=== PATIENT | male | born 1945 | race Caucasian/White ===

== ENCOUNTER → 2017-05-23 | Outpatient (CLI) | payer OTHER | END | disposition home or self-care (01) | LOC: C.RDSM 14:00 | PROVIDERS: ATTEND Physical Medicine & Rehabilitation Sports Medicine | DX: M25.561 Pain in right knee (principal); M25.562 Pain in left knee ==

== ENCOUNTER 2017-12-13 06:23 | Inpatient (IN) | payer OTHER ==
[2017-11-25 09:12] VITALS: BMI 35.0
--- NOTE | 2017-11-25 09:47 | PAT Medication Instructions ---
Service Date Nov 25, 2017. Current Home Medication List Ascorbic Acid (Vitamin C), 100 MG PO QAM Esomeprazole Magnesium (Nexium), 40 MG PO QAM Histamine Dihydrochloride (Top (Haitian Dream Arthriti), 1 DOSE TOP PRN Misc Natural Products (Ginkgo Biloba), 1 TAB PO QAM Multivitamin (Multivitamin), 1 TAB PO QAM Ocuvite Preservision (Ocuvite Preservision), 1 TAB PO QAM [Beta Carotene], 1 TAB PO QAM [Echinacea], 1 TAB PO QAM [Gensing], 1 TAB PO QAM [Red Yeast Rice], 1 TAB PO QAM [Vitamin E], 100 UNITS PO QAM Medication Instructions For Your Scheduled Surgery - Hold the following medications 2 weeks prior to surgery: [Vitamin E], 100 UNITS PO QAM [Beta Carotene], 1 TAB PO QAM [Echinacea], 1 TAB PO QAM [Gensing], 1 TAB PO QAM [Red Yeast Rice], 1 TAB PO QAM Histamine Dihydrochloride (Top (Haitian Dream Arthriti), 1 DOSE TOP PRN Misc Natural Products (Ginkgo Biloba), 1 TAB PO QAM - Hold the following medications the morning of surgery: Multivitamin (Multivitamin), 1 TAB PO QAM Ocuvite Preservision (Ocuvite Preservision), 1 TAB PO QAM Ascorbic Acid (Vitamin C), 100 MG PO QAM - Take the following medications the morning of surgery with a sip of water: Esomeprazole Magnesium (Nexium), 40 MG PO QAM If you have any questions please call us at [phone] or [phone] or [phone]
[2017-11-25 10:13] LABS: BASO % 0.5 %; BASO ABS # 0.04 K/uL (0-0.2); EOS % 2.1 %; EOS ABS # 0.18 K/uL (0-0.5); HEMATOCRIT 43.3 % (42-52); HEMOGLOBIN 15.1 g/dL (14.0-18.0); IG# 0.03 K/uL (0.00-0.02); LYMPH % 20.6 %; LYMPH ABS # 1.77 K/uL (1.2-3.4); MEAN CORPUSCULAR HEMOGLOBIN 31.7 pg (25-34); MEAN CORPUSCULAR HGB CONC 34.9 g/dl (32-36); MEAN PLATELET VOLUME 9.8 fL (7.4-10.4); MONO % 10.4 %; MONO ABS # 0.89 K/uL (0.11-0.59); NEUT % 66.1 %; NEUT ABS # 5.67 K/uL (1.4-6.5); PLATELET COUNT 186 K/uL (130-400); RED CELL DISTRIBUTION WIDTH CV 12.4 % (11.5-14.5); RED CELL DISTRIBUTION WIDTH SD 41.6 fL (36.4-46.3); WHITE BLOOD COUNT 8.58 K/uL (4.8-10.8)
[2017-11-25 10:22] LABS: PTT PATIENT 26.1 SECONDS (21.0-31.0)
[2017-11-25 12:22] LABS: CALCIUM 9.4 mg/dl (8.5-10.1); CREATININE 0.97 mg/dl (0.60-1.40); POTASSIUM 4.2 mmol/L (3.5-5.1)
--- NOTE | 2017-12-05 17:54 | HISTORY & PHYSICAL EXAMINATION ---
DATE OF ADMISSION: 12/13/2017 CHIEF COMPLAINT: Left knee pain. HISTORY OF PRESENT ILLNESS: This 72-year-old white male presents to the office with complaints of left knee pain that has been ongoing for several years. He has bilateral knee pain, left greater than right. He has been through viscosupplementation for numerous cycles. He has also used oral anti-inflammatories and activity modification without lasting improvement. Symptoms have been ongoing since approximately 2012. He elects to proceed with total knee arthroplasty in hopes of alleviating his discomfort. He notes occasional mild effusions. No specific injury. No numbness or tingling. No catching or locking. Pain is worse with ambulation and is affecting his ADLs. He has difficulty with stairs. Preoperative imaging has been obtained. PAST MEDICAL HISTORY: Significant for osteoarthritis, GERD, hiatal hernia, and obesity. PREVIOUS SURGERIES: Knee arthroscopy and herniorrhaphy. ALLERGIES: NKDA. CURRENT MEDICATIONS: 1. Beta carotene 15 mg daily. 2. Echinacea daily. 3. Ginseng daily. 4. Kinko Biloba daily. 5. Multivitamin daily. 6. Nexium 40 mg p.o. daily. 7. Ocuvite daily. 8. Vitamin C and E daily. SOCIAL HISTORY: The patient is employed at [employer]. Tobacco use of half pack a day for the last 50 years. No ETOH use. FAMILY HISTORY: Significant for cancer and diabetes, otherwise unremarkable. REVIEW OF SYSTEMS: Significant for above stated conditions, otherwise unremarkable. PHYSICAL EXAMINATION: GENERAL: Well-developed, well-nourished elderly white male in no acute distress. Sitting on a bed. Alert and oriented. SKIN: Warm and dry with good turgor. No rashes or lesions. No ecchymosis or erythema. HEENT: Normocephalic, atraumatic. Eyes PERRLA, EOMI. Nares patent bilaterally without turbinate enlargement. Oropharynx without erythema or exudate. No lesions noted. Uvula midline. Oral mucosa moist. Upper denture plate is noted. Lower denture bridge as well. HEART: RRR. No MGR. LUNGS: Clear to auscultation bilaterally. No crackles, rhonchi or wheezing. Good air movement. ABDOMEN: Obese. Bowel sounds present x4, soft, nontender. No organomegaly. No masses. MUSCULOSKELETAL: Left knee evaluation reveals no intraarticular effusion. He has loss of just a few degrees of terminal extension. Flexion to greater than 90 degrees. Stable collateral ligaments. No defect in the patellar tendon or quadriceps tendon. Strength is 5/5 with fair quad tone. He has discomfort with palpation over the medial joint line and the peripatellar area. No lateral joint line discomfort today. Mild crepitus is palpable with motion. Varus stance. NEUROLOGIC: Gross sensation is intact across the lower extremities by soft touch. Cranial nerves II-XII are intact. DATA: Radiographic imaging previously obtained shows significant arthritis in both knees. He has medial joint space narrowing, periarticular osteophytes, and subchondral sclerosis in both knees. IMPRESSION: Left knee end-stage degenerative joint disease. PLAN: Anticipate discharge to home with home health services for 2 weeks and then outpatient PT. He already has access to a walker and will obtain a cane. Medical clearance has been requested from his PCP, Dr. Acevedo. The patient did have a stress test obtained at [facility] in 2017 that he states was unremarkable. Postoperative prescriptions for Percocet and Coumadin will be provided at discharge from the hospital. Informed written consent will be obtained the day of surgery.
[~2017-12-13] VITALS: Ht 180.3 cm; Wt 113.0 kg
[2017-12-13] VITALS (9 sets, daily range): BP systolic 109–155; BP diastolic 68–87; PULSE 45–66; TEMP 36.3–37.3; O2SAT 94–96; Ht 180.3 cm; Wt 113.0 kg
[~2017-12-13 06:23] MED LIST: ASCO100T4 PO; BULKCRY PO; CEFAZOLIN 2000MG IV PUSH 15 ML IV SCH; ECHINACEA PO; GENSING PO; LACTATED RINGER'S 1000ML 1,000 ML IV SCH; LACTATED RINGER'S 1000ML 500 ML IV SCH; LACTATED RINGER'S 1000ML IV SCH; MISCTAB26 PO; MULT-190 PO; MULT-506 PO; NXM/40 PO; RED YEAST RICE PO; ROPIVACAINE 5MG/ML 30 ML 150 MG, BUPIVACAINE 0.5% MPF INJ 30 ML, EpINEphrine HCL INJ 0.... INFIL SCH; ROPIVACAINE 5MG/ML 30 ML 150 MG, BUPIVACAINE/EPINEPHR 0.5% MPF 30 ML, KETOROLAC TROMETH... INFIL SCH; TRANEXAMIC ACID INJ 1,000 MG x 1 Bag Preop IV SCH; VITAMIN E PO; [UNRECOGNIZED DRUG - CODE] TOP
--- NOTE | 2017-12-13 06:27 | History & Physical Bridge Note ---
H&P Re-Evaluation Bridge Note: I have examined the patient, reviewed the History & Physical and in the interval since the performance of the History & Physical I have noted the following changes of clinical significance: consent obtained all questions answered.No changes noted
[2017-12-13] MEDS ORDERED: BUPIVACAINE 0.25% 30 ML VIAL ONE (07:19)
[2017-12-13] MEDS ORDERED: BUPIVACAINE 0.5 % 5 MG/1 ML PF 10ML VIAL ONE (07:19)
[2017-12-13] MEDS ORDERED: LIDOCAINE HCL 2% 2 ML VIAL (20MG/ML) ONE (07:27)
[2017-12-13] MEDS ORDERED: PROPOFOL IV EMULSION 10 MG/ML 20 ML VIAL IV ONE (07:27)
[2017-12-13] MEDS ORDERED: ONDANSETRON INJ 2 MG/ML 2 ML VIAL ONE (07:27)
[2017-12-13] MEDS ORDERED: FENTANYL CITRATE INJ 50 MCG/1 ML 2 ML VIAL ONE (07:27)
[2017-12-13] MEDS ORDERED: MIDAZOLAM HCL 1 MG/ML 2ML VIAL ONE ×2 (07:27→09:10)
[2017-12-13] MEDS ORDERED: ORTHO JOINT ANESTHETIC ONE (08:32)
[2017-12-13] MEDS ORDERED: POVIDONE-IODINE OP SOLN 30 ML BTL ONE (08:32)
[2017-12-13] MEDS ORDERED: PHENYLEPHRINE 100MCG/ML 5ML SYR IV PRN (09:15)
[2017-12-13] MEDS ORDERED: ONDANSETRON INJ 2 MG/ML 2 ML VIAL IV PRN ×2 (09:15→10:30)
[2017-12-13] MEDS ORDERED: EpHEDrine SULFATE INJ 50 MG/ML AMP IV PRN (09:15)
[2017-12-13] MEDS ORDERED: FENTANYL CITRATE INJ 50 MCG/1 ML 2 ML VIAL IV PRN (09:15)
[2017-12-13] MEDS ORDERED: HYDROmorphone INJ 1 MG/ML SYR IV PRN (09:15)
[2017-12-13] MEDS ORDERED: ATROPINE SULFATE 0.1 MG/ML 5ML SYR IV PRN (09:15)
[2017-12-13] MEDS ORDERED: OXYCODONE HCL IR 5 MG TAB (IMMEDIATE RELEASE) PO PRN (10:30)
[2017-12-13] MEDS ORDERED: CEFTRIAXONE SOD INJ 1 GM ADDVIAL IV SCH (10:30)
[2017-12-13] MEDS ORDERED: ACETAMINOPHEN IV 100 ML IV PRN (10:30)
[2017-12-13] MEDS ORDERED: ALUMINUM/MAGNESIUM/SIMETH (MAALOX MAX) 30 ML UDC PO PRN (10:30)
[2017-12-13] MEDS ORDERED: BISACODYL 10 MG SUPP PR PRN (10:30)
[2017-12-13] MEDS ORDERED: DiphenhydrAMINE HCL 50 MG/ML VIAL IV PRN (10:30)
[2017-12-13] MEDS ORDERED: METOCLOPRAMIDE HCL INJ 5 MG/ML 2 ML VIAL IV PRN (10:30)
[2017-12-13] MEDS ORDERED: ACETAMINOPHEN 325 MG TAB PO PRN (10:30)
[2017-12-13] MEDS ORDERED: TAMSULOSIN HCL 0.4 MG CAP PO PRN (10:30)
[2017-12-13] MEDS ORDERED: MoRPHine SULFATE 2 MG/ML CARP IV PRN (10:30)
--- NOTE | 2017-12-13 10:31 | OPERATIVE REPORT ---
DATE OF OPERATION: 12/13/2017 SURGEON: Dr. Benitez. SPORTS EQUIPMENT REPAIRER: Morgan Hassan PA-C. SECOND SPORTS EQUIPMENT REPAIRER: Medical student Rohini. PREOPERATIVE DIAGNOSIS: Severe osteoarthritis with varus deformity, left knee. POSTOPERATIVE DIAGNOSIS: Same. OPERATION PERFORMED: Cemented left total knee replacement. SUMMARY OF IMPLANTS: Size 4 posterior cruciate substituting femur, size 4 rotating platform tibial tray, size 4 spacer 10 mm thick posterior cruciate stabilized, oval domed 3 pegged patella size 41, 2 bags of Palacos G cement. ESTIMATED BLOOD LOSS: 50 mL CRYSTALLOID: 1600 mL Bone pathology pending. PERIOPERATIVE SITUATION: Medically cleared male with intractable knee pain. Physical exam, x-ray, and multiple years of followup reveal advancing degenerative disease bilaterally, left is worse than right symptomatically, although the x-rays are slightly worse on the right than the left. He has end-stage disease bilaterally. Marked medial joint space narrowing, varus alignment, and slight tibial subluxation laterally. Marginal osteophytes in all 3 compartments. PROCEDURE: The patient appropriately identified, site verified, consent verified, 2 grams of Ancef confirmed as being given. The left lower extremity was prepped and draped in usual routine fashion. Tourniquet inflated at 300 mmHg after exsanguination of limb with a rubber Esmarch bandage for a total of approximately 52 minutes. Midline exposure utilized. Parapatellar arthrotomy performed. Synovectomy completed, osteophytes resected. Distal femur entered. ACL and PCL resected. Distal femur resected 12 mm. Proximal tibia subluxated, resected 4 mm. Meniscal remnants resected. Extension gap was excellent. Femur sized to a 4, appropriate cutting block applied. Anterior and posterior condylar and chamfer cuts made and the flexion gap checked, it was excellent. Orthomix injected posteriorly. The box cut then made and the size 4 trial fit well. The tibia was then broached and reamed to a size 4, appropriate position, and then a 10 mm spacer placed, it was stable through full extension, mid range flexion and full flexion. Patella tracked well. The patella was sized to 41, resected leaving 16 mm, seating holes made and the trial tracked well. All trial implants were then removed after the Orthomix was injected. The wound irrigated with Betadine, Pulsavac, and then the permanents cemented into position. After 12 minutes, the tourniquet deflated. After 14 minutes, the knee flexed. Minor bleeding points controlled with electrocautery. Minor cement removal occurred. The wound irrigated with Pulsavac, Betadine, Pulsavac, Betadine, and the permanent liner seated. The knee then reduced permanently and then closed with 2-0 Vicryl and stainless steel clips. Appropriate dressing applied and the patient transferred to recovery room in satisfactory condition, having tolerated the procedure well. Again, estimated blood loss 75 mL, crystalloid 1600 mL. Size 4 posterior cruciate substituting femur, size 4 rotating platform tibial tray, size 4 spacer 10 mm thick posterior cruciate substituting, oval domed 3 pegged patella size 41. Bone pathology pending. DVT prophylaxis with Coumadin. I attest to the content of the Intraoperative Record and any orders documented therein. Any exception s are noted below.
--- NOTE | 2017-12-13 11:13 | Anesthesiology Progress Note ---
Anesthesia Post Op Note Date & Time Dec 13, 2017 at 11:12 Vital Signs Pain Intensity: 0 Vital Signs Past 12 Hours Date Time Temp Pulse Resp B/P (MAP) Pulse Ox O2 Delivery O2 Flow Rate FiO2 12/13/17 10:21 36.4 80 16 90/70 97 Room Air 12/13/17 07:01 36.5 50 20 140/83 96 Room Air Notes Mental Status: alert / awake / arousable, participated in evaluation Pt Amnestic to Procedure: Yes Nausea / Vomiting: adequately controlled Pain: adequately controlled Airway Patency, RR, SpO2: stable & adequate BP & HR: stable & adequate Hydration State: stable & adequate Neuraxial Anesthesia: was administered, sensory block is resolving Anesthetic Complications: no major complications apparent
[2017-12-13] MEDS ORDERED: MoRPHine SULFATE 4 MG/ML 1 ML CARP\\VIAL IV PRN (11:15)
--- NOTE | 2017-12-13 11:16 | DIAGNOSTIC IMAGING REPORT ---
L KNEE 1 OR 2 VIEWS ROUTINE CLINICAL HISTORY: 72 years-old Male presenting with AP/LATERAL IN PACU LEFT KNEE. TECHNIQUE: Frontal and lateral views of the left knee were obtained. COMPARISON: 01/10/2015. FINDINGS: Interval total left knee arthroplasty with patellar resurfacing. Expected intra-articular and soft tissue emphysema. Skin karime in place. No malalignment. No periprosthetic fracture. No hardware complication. Calcification at the patellar tendon insertion likely indicates prior injury or chronic degeneration. IMPRESSION: Expected postsurgical changes status post left total knee arthroplasty with patellar resurfacing. Electronically signed by: Kunal Rothman M.D. 12/13/2017 11:15 AM Dictated Date/Time: 12/13/2017 11:14 AM
--- NOTE | 2017-12-13 12:39 | [facility] Operative Report ---
Operative Report Operative Date Dec 13, 2017. Pre-Operative Diagnosis Left Knee End-Stage Degenerative Joint Disease Post-Operative Diagnosis Left Knee End-Stage Degenerative Joint Disease Procedure(s) Performed Left Total Knee Arthroplasty Surgeon Dr. Benitez Foreign Clerk Surgeon(s) TRACIE Ortega Estimated Blood Loss 50 ml Findings left knee DJD Specimens A. Left Knee Bone and Tissue Anesthesia Type MAC Spinal Regional Complication(s) none Disposition Recovery Room / PACU Indications This 72-year-old white male presented to the office with complaints of intractable left knee pain. He had tried conservative care measures including activity modification, injections, viscous supplementation, and oral pain medication without lasting improvement. He elected to proceed with surgical intervention after being educated about potential risks and outcomes. Preoperative imaging was obtained. Description of Procedure Patient was administered a spinal anesthetic and then taken to the operating room where he was given sedation. He was prepped and draped in usual sterile fashion. Please see Dr. Benitez's operative report for specifics of the procedure. I was present for the entire case from initial patient positioning through final wound closure. Assistance was provided in tissue traction, hemostasis, trial implant placement, final implant placement, and final wound closure. Patient was taken to the recovery room in satisfactory condition. I attest to the content of the Intraoperative Record and any orders documented therein. Any exceptions are noted below.
[2017-12-13] MEDS ORDERED: D5W AND 1/2NSS + 20MEQ KCL 1,000 ML IV SCH (13:00)
--- NOTE | 2017-12-13 13:28 | PROGRESS NOTE ---
DATE: 12/13/2017 Postop check status post left total knee replacement. The patient is sitting up in bed, conversant, is eating well, has no issues. Denies chest pain, shortness of breath, fever, chills, nausea, vomiting or headache. Vital signs are stable. He is afebrile. Neurovascular check, femoral sciatic nerve is normal. Wound dressing clean, dry and intact. Postop x-rays look excellent. ASSESSMENT: Doing well. Continue with care pathway. Discharge tomorrow after PT/OT. I will be out of town, Morgan Hassan PA-C, will attend to that. Discharge on Coumadin pending INR results.
[2017-12-13] MEDS: KETOROLAC TROMETHAMINE 15 MG/ML VIAL IV. SCH ×2 (13:45→20:51)
[2017-12-13] MEDS ORDERED: CEFTRIAXONE SOD INJ 1000 MG in DEXTROSE 5% 50ML IV SCH (14:00)
[2017-12-13] MEDS ORDERED: WARFARIN SOD 5 MG TAB PO SCH (16:00)
[2017-12-13] MEDS: MAGNESIUM HYDROXIDE SUSP 30 ML UDC PO PRN (16:12)
[2017-12-13] MEDS: FERROUS GLUCONATE 324 MG TAB PO SCH (16:58)
[2017-12-13] MEDS ORDERED: TRANEXAMIC ACID INJ 1,000 MG in SODIUM CHLORIDE 0.9% 100ML 100 ML IV SCH (17:00)
[2017-12-13] MEDS: DOCUSATE SODIUM 100 MG CAP PO SCH (20:50)
[2017-12-13] MEDS ORDERED: NURSING VERBAL MED ORDER ONE (22:00)
[2017-12-13] MEDS ORDERED: COLACE PO (22:13)
[2017-12-13] MEDS ORDERED: SENNA PO (22:13)
[2017-12-13] MEDS ORDERED: SENNA 8.6 MG TAB PO PRN (22:45)
[2017-12-14] MEDS: KETOROLAC TROMETHAMINE 15 MG/ML VIAL IV. SCH ×2 (01:16→07:46)
[2017-12-14 03:08] VITALS: BP 163/95; PULSE 82; TEMP 37; O2SAT 93
[2017-12-14 05:55] LABS: HEMATOCRIT 36.7 % (42-52); HEMOGLOBIN 12.8 g/dL (14.0-18.0); MEAN CELL VOLUME 90.2 fL (80-100); MEAN CORPUSCULAR HEMOGLOBIN 31.4 pg (25-34); MEAN CORPUSCULAR HGB CONC 34.9 g/dl (32-36); MEAN PLATELET VOLUME 9.7 fL (7.4-10.4); PLATELET COUNT 178 K/uL (130-400); RED CELL DISTRIBUTION WIDTH CV 12.2 % (11.5-14.5); WHITE BLOOD COUNT 12.48 K/uL (4.8-10.8)
[2017-12-14 06:05] LABS: INR 1.1 (0.9-1.1)
[2017-12-14 06:28] LABS: CREATININE 1.03 mg/dl (0.60-1.40); POTASSIUM 3.9 mmol/L (3.5-5.1)
[2017-12-14] MEDS ORDERED: DEXAMETHASONE INJ 10 MG in SYRINGE 0 ML IV SCH (07:30)
[2017-12-14] MEDS: FERROUS GLUCONATE 324 MG TAB PO SCH (07:46)
[2017-12-14] MEDS: MAGNESIUM HYDROXIDE SUSP 30 ML UDC PO PRN (07:46)
[2017-12-14] MEDS: DOCUSATE SODIUM 100 MG CAP PO SCH (07:47)
[2017-12-14 08:36] VITALS: BP 132/90; PULSE 72; TEMP 37.4; O2SAT 94
[2017-12-14 08:43] VITALS: O2SAT 94
[2017-12-14] MEDS ORDERED: CEROVITE ADV FORMULA TAB PO SCH (09:00)
[2017-12-14] MEDS ORDERED: MULTIVITAMIN TAB PO SCH (09:00)
[2017-12-14] MEDS ORDERED: PANTOprazole SOD 40 MG TAB PO SCH (09:00)
[2017-12-14] MEDS ORDERED: WARF2TAB PO (09:15)
[2017-12-14] MEDS ORDERED: OXYC-57 PO (09:15)
--- NOTE | 2017-12-14 09:18 | Discharge Instructions ---
Discharge Instructions Date of Service Dec 14, 2017. Admission Reason for Admission: Left Knee Degenerative Joint Disease Discharge Discharge Diagnosis / Problem: left knee s/p total knee replacement Discharge Goals Goal(s): Decrease discomfort, Improve function, Increase independence Activity Recommendations Activity Limitations: as noted below Lifting Limitations: gradually increase as tolerated Exercise/Sports Limitations: until after follow-up appointment Shower/Bathe: keep incision dry Driving or Machine Use: No driving until cleared by Dr. Benitez Weightbearing Status: Left weightbearing (as tolerated) . Instructions / Follow-Up Instructions / Follow-Up New Medicine: * You will likely be taking one or more of these medications: 1. Percocet - Take, as directed, when you need it, every four to six hours to control your pain. 2. Coumadin - Thins your blood to lessen the chance of forming a blood clot. The dose of this is different for each person and is based on your blood tests that are done twice a week. * The most common side effects of pain medicine and iron are nausea and constipation. If nausea or constipation is too much of a problem or if you have any questions about your new medicines or doses, call [facility] at . We will try to help you manage these issues. VERY IMPORTANT TO READ AND REVIEW" Blood Clots and Blood Thinning Medicine: * You are given Coumadin during the immediate post-operative period to lessen the risk of blood clots forming in your legs and/or lungs. Coumadin is usually given for six weeks after surgery. * The prescription is for 2 mg tablets. At discharge, you should understand your dose and take it all at the same time every day, preferably after dinner. * You need to get your blood checked 1 - 2 times per week for six weeks or as directed. * If your dose needs to change, we will call you. Do not take your medication on the day of the blood test until we call you. Pain: * The immediate post-operative period after knee replacement surgery is often quite painful. * You are given a prescription for pain medicine. You should take it, as directed, when you need it, especially before physical therapy and before going to bed. Pain that interferes with sleep is very common and can last several months. * You will likely need pain medicine for the first four to six weeks. It will not stop all of the pain. The pain will lessen and as you feel better, you may change to milder pain medicine such as Tylenol. * The most common side effects of pain medicine are nausea and constipation, so don't take more than you need. Physical Therapy: * You will have physical therapy two or three times each week for four to six weeks after your surgery in order to regain your knee range of motion and to retrain your knee to work properly. * It is just as important to make sure you are getting your knee perfectly straight as it is to regain your knee bend. * Taking a pain pill an hour before therapy can help you have a more productive and comfortable therapy session if needed. Home Exercise: * You were shown a series of exercises (heel props, heel slides, etc.) in the hospital. Do these exercises three to four times each day including the exercises you were shown in physical therapy. Walking: * Get up and walk several times each day. For the first four weeks, try not to stand or walk for more than one hour at a time. If you do stand or walk for more than one hour, you will not hurt anything, but your knee and leg will likely swell. * As you feel comfortable, you may change from the walker or crutches to a cane and then to independent walking. SELF CARE INSTRUCTIONS AFTER TOTAL KNEE REPLACEMENT A. You may need to continue a physical therapy program after discharge from the hospital. There are several options available to you. Your doctor will assist you in selecting the best one for you. 1. An out-patient facility 2 to 3 times a week for therapy or home therapy. 2. Continue working on all exercises taught to you in the hospital. Your goals should be to increase bending of your knee to 90 degrees and beyond and to fully straighten your knee. B. You may progress at your own pace from walking with a walker or crutches to a cane; then to no assistive devices. C. Make walking a part of your daily routine. Be up as much as comfortable with rest periods throughout the day. Rest with leg elevation is very important. Use the ice wrap frequently for the first 3-4 weeks. D. There are no restrictions on activities. You may ride in a car, shop, participate in service officer and all social activities. E. Wear the long elastic stockings (BALTAZAR hose) 20 hours a day for six weeks after surgery. They can be removed several times a day for laundering and for a shower. F. Do not place a pillow behind your knee when resting. A pillow at your ankle is okay. VERY IMPORTANT TO READ AND REVIEW A. Take Coumadin, Aspirin or Lovenox (blood thinning medications) as directed by your doctor. If on Coumadin, have a pro-time (blood test) drawn according to your doctor's instructions. This will tell the doctor how well the Coumadin is thinning your blood. 1. YOU WILL BE GIVEN AN ORDER AT DISCHARGE FOR PT/INR (BLOOD WORK). PLEASE HAVE THIS DONE INSTRUCTED. PLEASE CALL OUR OFFICE AFTER YOUR BLOODWORK IS COMPLETE SO WE CAN TRACK YOUR RESULTS. IF YOU ARE GOING TO OUTPATIENT PHYSICAL THERAPY, YOU WILL NEED TO GO TO OUTPATIENT TESTING TO HAVE IT DRAWN. B. There are a few signs you need to watch for after you are home. Call [facility] if you notice any of the followin. Increased severe knee pain. Some pain is expected especially when you exercise. 2. Increased swelling in your leg or knee; pain or swelling of the calf muscle in either lower leg. 3. Any fluid drainage from the incision. 4. Shortness of breath or chest pain. C. Please call [facility] at if you have any concerns or questions about your operation or recovery. The doctor or his nurse will return your call promptly. D. You must take antibiotics before dental work, bladder, bowel or other surgery. Call the office to obtain a prescription at least 2 days prior to your appointment. * CALL IF INCREASED PAIN, REDNESS, DRAINAGE OR FEVER GREATER THAT 101. * Sutures should be removed 12-14 days after surgery unless you are on chronic steriods, then it will be 14-18 days after surgery. Call your doctor if: * Temperature above 101 degrees F. * Pain not relieved by pain medicine ordered. * Increased drainage or redness from incision. * Notify your doctor with any questions or concerns. Current Hospital Diet Patient's current hospital diet: Regular Diet Discharge Diet Recommended Diet: Regular Diet Procedures Procedures Performed: Left Total Knee Arthroplasty Pending Studies Studies pending at discharge: no Medical Emergencies . Who to Call and When: Medical Emergencies: If at any time you feel your situation is an emergency, please call 911 immediately. . Non-Emergent Contact Non-Emergency issues call your: Primary Care Provider, Surgeon Call Non-Emergent contact if: temperature is above 101, wound has increased drainage, wound has increased redness, wound has increased pain . "Provider Documentation" section prepared by Morgan Hassan PA-C. . VTE Core Measure Inpt VTE Proph given/why not?: Warfarin (Coumadin), T.E.D. Stockings, SCD's [place] Drug Monitoring Program Search Results: patient reviewed within database, no issues identified
[2017-12-14 09:35] VITALS: BP 143/86; PULSE 87; O2SAT 92
--- NOTE | 2017-12-14 09:39 | Orthopedic Progress Note ---
Orthopedic Progress Note Date of Service Dec 14, 2017. Subjective Post OP Day: 1 Reports: feeling well, pain controlled w PO medications, Denies: complaints, chest pain, SOB, nausea / vomiting, light headedness, calf pain Additional Notes: complaining of some constipation. Has had MOM, prune juice and colace without success. Waiting until he gets home for enema. States the knee hurts less now than pre-op and he is ready for discharge. Objective calves soft nontender, N/V intact, capillary refill less than 2 sec., dressing C /D/I, incision C/D/I, A&O x3, toes mobile, CMS intact scant drainage on dressings, no active bleeding. able to do SLR and knee flexion. Date Time Temp Pulse Resp B/P (MAP) Pulse Ox O2 Delivery O2 Flow Rate FiO2 12/14/17 08:43 94 Room Air 12/14/17 08:36 37.4 72 14 132/90 (104) 94 Room Air 12/14/17 07:40 Room Air 12/14/17 03:08 37.0 82 16 163/95 (117) 93 Room Air 12/13/17 23:30 Room Air 12/13/17 22:52 37.2 66 15 155/87 (109) 94 Room Air 12/13/17 19:28 37.3 57 18 121/79 (93) 95 Room Air 12/13/17 15:31 Room Air 12/13/17 15:02 36.9 61 18 128/78 (95) 96 Room Air 12/13/17 14:25 36.9 53 18 123/77 (92) 95 Room Air 12/13/17 13:21 56 18 120/77 (91) 95 Room Air 12/13/17 12:25 58 18 120/76 (91) 96 Room Air 12/13/17 11:52 45 16 120/71 (87) 12/13/17 11:25 Room Air 12/13/17 11:25 Room Air 12/13/17 11:25 36.3 48 18 109/68 (82) 94 Room Air 12/13/17 11:12 36.9 12/13/17 11:11 51 15 96/70 93 12/13/17 11:11 52 15 12/13/17 11:06 49 16 12/13/17 11:06 50 16 117/71 93 12/13/17 11:01 47 13 12/13/17 11:01 45 13 95/64 92 12/13/17 10:56 51 14 12/13/17 10:56 48 14 110/72 94 12/13/17 10:51 56 16 95/60 93 12/13/17 10:51 57 16 12/13/17 10:46 64 17 94/64 95 12/13/17 10:46 63 17 12/13/17 10:41 66 15 12/13/17 10:41 65 15 103/72 94 12/13/17 10:36 59 16 12/13/17 10:36 63 16 95/63 92 12/13/17 10:31 75 21 100/55 95 12/13/17 10:31 75 21 12/13/17 10:29 92/61 12/13/17 10:21 36.4 80 16 90/70 97 Room Air Laboratory Results 24 Hours: Test 12/14/17 05:34 Hematocrit 36.7 % Hemoglobin 12.8 g/dL Prothromb Time International Ratio 1.1 Prothrombin Time 11.3 SECONDS Assessment & Plan Assessment: Left knee post op day 1 total knee arthroplasty Plan: PT/OT today then D/C to home with home health coumadin per nomogram. Dose today before D/C check INR on Tuesday dressing changed this morning by me-wound looks excellent. Ambulating with walker continue TEDs after D/C for 6 weeks Discharge Planning Discharge Planning: home with home health Pain Management: Percocet DVT Prophylaxis: TEDs, SCDs, Coumadin Therapy: Physical Therapy
[2017-12-14 10:36] VITALS: BP 132/90; PULSE 72; TEMP 37.4; O2SAT 94
--- NOTE | 2017-12-14 13:47 | DISCHARGE SUMMARY ---
CHIEF COMPLAINT: Left knee pain. HISTORY OF PRESENT ILLNESS: The patient underwent elective left total knee replacement. HOSPITAL COURSE: Hospital course has been uneventful. He is doing well. He denies any real issues. He has been mobile. His pain has been well managed. His wound is clean and dry. PAST MEDICAL HISTORY: Remarkable for osteoarthritis, GERD, hiatal hernia, and obesity. PAST SURGICAL HISTORY: Include arthroscopy, herniorrhaphy. ALLERGIES: None. PREADMISSION MEDICATIONS: Include vitamin supplements including ginseng, ginkgo biloba, echinacea, beta carotene. Nexium, Ocuvite vitamin C and E. Additional discharge adamson, he will have Coumadin, keep INR 1.8-2.2 and p.r.n. use of narcotic prescription. See attached. SOCIAL HISTORY: Tobacco half pack per day for the last 50 years. Denies alcohol use. REVIEW OF SYSTEMS: Reveals no chest pain, gqexub3icm of breath, fever, chills, nausea, vomiting or headache. FAMILY HISTORY: Reveals he is . No issues with help at home. Has a history of cancer and diabetes in the family. ASSESSMENT: Overall, doing well status post left total knee replacement. We will discharge to home. We will have outpatient PT. Coumadin to INR 1.8-2.2, start with 4 mg daily, check INR on Tuesday repeat. Follow up in 2 weeks for staple removal.
[2017-12-14] MEDS ORDERED: WARFARIN SOD 5 MG TAB PO SCH (16:00)
== END 2017-12-14 11:52 | disposition home health service (06) | DRG 470 ==
LOC: C.ACU 06:23 → C.3E 10:33 → ENRESERV 10:47
PROVIDERS: ADMIT Physical Medicine & Rehabilitation Sports Medicine; ATTEND Physical Medicine & Rehabilitation Sports Medicine
PROC: 0SRD0J9 Replacement of Left Knee Joint with Synthetic Substitute, Cemented, Open Approach (ICD-10-PCS; principal; 2017-12-13 09:00)
DX: M17.12 Unilateral primary osteoarthritis, left knee (principal); M21.162 Varus deformity, not elsewhere classified, left knee; K59.00 Constipation, unspecified; I25.10 Atherosclerotic heart disease of native coronary artery without angina pectoris; K21.9 Gastro-esophageal reflux disease without esophagitis; F17.210 Nicotine dependence, cigarettes, uncomplicated; E66.01 Morbid (severe) obesity due to excess calories; Z68.35 Body mass index [BMI] 35.0-35.9, adult; Z79.899 Other long term (current) drug therapy

== ENCOUNTER → 2018-02-06 | Outpatient (CLI) | payer OTHER ==
[~2018-02-06] MED LIST changes: -CEFAZOLIN 2000MG IV PUSH 15 ML IV SCH; +COLACE PO; -LACTATED RINGER'S 1000ML 1,000 ML IV SCH; -LACTATED RINGER'S 1000ML 500 ML IV SCH; -LACTATED RINGER'S 1000ML IV SCH; +OXYC-57 PO; -ROPIVACAINE 5MG/ML 30 ML 150 MG, BUPIVACAINE 0.5% MPF INJ 30 ML, EpINEphrine HCL INJ 0.... INFIL SCH; -ROPIVACAINE 5MG/ML 30 ML 150 MG, BUPIVACAINE/EPINEPHR 0.5% MPF 30 ML, KETOROLAC TROMETH... INFIL SCH; +SENNA PO; -TRANEXAMIC ACID INJ 1,000 MG x 1 Bag Preop IV SCH; +WARF2TAB PO
== END ==
LOC: C.RDSM 18:25
PROVIDERS: ATTEND Physical Medicine & Rehabilitation Sports Medicine
DX: S89.92XA Unspecified injury of left lower leg, initial encounter (principal); X58.XXXA Exposure to other specified factors, initial encounter; M17.0 Bilateral primary osteoarthritis of knee; Z96.659 Presence of unspecified artificial knee joint; Z09 Encounter for follow-up examination after completed treatment for conditions other than malignant neoplasm

== ENCOUNTER 2021-05-27 04:54 | Observation (INO) ==
--- NOTE | 2021-05-26 09:49 | Anesthesiology Consultation ---
Date of Service May 26, 2021 Assessment & Plan (1) Encounter for pre-operative examination: Chart Review Chart Review: Acceptable Risk for Surgery and Patient NOT seen in Pre Admission Testing -Pt was seen in [facility] on 05/11/21 by Lorrie Muse PA-C- patient had new V# so information from initial consultation used for current chart Per nursing assessment 05/25/2021, patient resides in [facility]. Wears mask per CDC guidelines. Returned from [place], [place] on 04/26/21 (working on vacation home "isolated"). [place]. Patient vaccinated for Covid. No known Covid infection in the past 90 days. No known COVID-19 positive contacts or current COVID-19 related symptoms. Preop Covid test 05/25/21= negative PCP clearance request 05/13/2021 = " yes" patient is medically cleared for surgery. Seen in office by PCP 05/12/2021 = seen for medical clearance for total right knee replacement. Preop chest x-ray did find 7 mm nodulescheduled for chest CT 05/14/2021. " Patient is a low risk from a surgery." Patient seen by cardiology 05/18/21 = seen for preop visit. Patient with history of atherosclerotic heart disease, thoracic aortic ectasia. BP well controlled. Not interested in statin therapy but on red yeast ricewe will follow up with labs. EKG similar to EKG last year. On baby aspirin given coronary plaque. Patient did stop smoking. Previous abdominal CT did not show any abdominal aortic aneurysm. Did have nodule in preop EKGfollow-up chest CT was unremarkable. Demonstrated stable mild thoracic ascending aortic ectasia of approximately 4 cmwe will repeat echocardiogram next year to follow-up on this. " In regards to his upcoming right total knee replacement surgery would consider him low risk from a cardiac ischemic standpoint given that he reports an exercise capacity greater than 4 metabolic equivalents without any exertional cardiac symptoms. He would be a low risk to hold his aspirin 5 to 7 days prior to the surgery if needed." Follow-up in 1 year. - S/P Left TKA (12/13/17): SAB at L3-L4 + PNB at [facility] History Surgery Operation Date: 05/27/21 07:00 Proposed Procedures p Right Total Knee Arthroplasty - Misael Benitez MD Height/Weight Height: 5 ft 11 in Weight: 108.7 kg Allergies Allergy/AdvReac Type Severity Reaction Status Date / Time No Known Allergies Allergy Verified 04/23/21 15:01 Medications Home Medications Medication Instructions Recorded Confirmed Last Taken Co Q10 1 tab PO QAM 04/23/21 05/25/21 Unknown Echinacea 1 tab PO QAM 04/23/21 05/25/21 Unknown Ginko Biloba 1 tab PO QAM 04/23/21 05/25/21 Unknown Ginseng 1 tab PO QAM 04/23/21 05/25/21 Unknown [place] Colon Health 1 tab PO QAM 04/23/21 05/25/21 Unknown Red Yeast Rice 1 tab PO QAM 04/23/21 05/25/21 Unknown Vitamin E 1 tab PO QAM 04/23/21 05/25/21 Unknown esomeprazole magnesium 20 mg 20 mg PO QAM 04/23/21 05/25/21 Unknown capsule,delayed release (Nexium) fluticasone propionate 50 1 spray INTRANASAL BID PRN 04/23/21 05/25/21 Unknown mcg/actuation nasal spray,suspension multivitamin 1 tab PO QAM 04/23/21 05/25/21 Unknown naproxen sodium 220 mg capsule 220 - 440 mg PO BID PRN 04/23/21 05/25/21 Unknown (Aleve) Past Medical History Medical History (Updated 05/26/21 @ 09:38 by Renetta Milner PA-C) Arthritis Coronary artery calcification Noted on CT Abdomen/Pelvis (2015) > s/p negative 2017 stress testing, follows annually with cardiology ([facility]) Esophageal ulcer Hx GERD (gastroesophageal reflux disease) Hiatal hernia Hyperlipidemia Per records Past Family History Family History Other Cancer Diabetes No known health problems Past Surgical History Surgical History History of colonoscopy 2020 History of esophagogastroduodenoscopy (EGD) 2020 History of total knee replacement Left TKA (12/13/17): SAB at L3-L4 + PNB at [facility] Lipoma Removal (posterior ear) Social History Smoking Status: Current every day smoker Smoking cigarettes per day: 8-10 CIGS A DAY Do You Dip or Chew Tobacco: No Hx Alcohol Use: Yes Alcohol type: hard liquor alcohol intake frequency: holidays/special occasions only Hx Substance Use: No Review of Systems Patient denies chest pain, shortness of breath, dyspnea on exertion, fever, chills, cough, wheezing, palpitations. (Per anesthesia consultation by Lorrie Muse PA-C on 05/11/21) Physical Exam Vital Signs VITALS BP 114/75 P 57 TEMP 98.3 SP02 96%RA RESP 16 (Per anesthesia consultation by Lorrie Muse PA-C on 05/11/21) PHYSICAL Full cervical extension range of motion. Full TMJ range of motion. TMD 3 finger breaths Mallampati Score 3 Dentition: upper partial, full upper dentures Lungs: clear throughout to auscultation Cardiac: regular rate and rhythm, no murmurs noted Spine: normal Carotid arteries: negative bruit Extremities: no edema (Per anesthesia consultation by Lorrie Muse PA-C on 05/11/21) Lab Results Anesthesia Preop Results Results Anesthesia Widget: WBC 7.03 K/uL (4.8-10.8) 05/11/21 Hgb 13.7 g/dL (14.0-18.0) L 05/11/21 Hct 40.5 % (42-52) L 05/11/21 Plt 285 K/uL (130-400) 05/11/21 Na 139 mmol/L (136-145) 05/11/21 K 4.8 mmol/L (3.5-5.1) 05/11/21 Cl 107 mmol/L (98-107) 05/11/21 CO2 27 mmol/L (21-32) 05/11/21 BUN 17 mg/dl (7-18) 05/11/21 Creat 1.04 mg/dl (0.6-1.4) 05/11/21 Glucose Level 89 mg/dl (70-99) 05/11/21 PT 10.3 Seconds (9.0-12.0) 05/11/21 PTT 28.2 Seconds (21.0-31.0) 05/11/21 INR 1.0 (0.9-1.1) 05/11/21 Urine Color Yellow 05/11/21 Urine Appearance Clear (Clear) 05/11/21 Urine pH 5.5 (4.5-7.5) 05/11/21 Urine Specific [place] 1.017 (1.000-1.030) 05/11/21 Urine Protein Negative (Negative) 05/11/21 Urine Glucose (UA) Negative (Negative) 05/11/21 Urine Ketones Negative (Negative) 05/11/21 Urine Blood Negative (Negative) 05/11/21 Urine Nitrite Negative (Negative) 05/11/21 Urine Bilirubin Negative (Negative) 05/11/21 Urine Urobilinogen Negative (Negative) 05/11/21 Urine Leukocyte Esterase Negative (Negative) 05/11/21 Blood Type B Positive 05/11/21 Antibody Screen NEGATIVE 05/11/21 Testing Electrocardiogram Date: 06/02/20 SB at 59bpm. Otherwise normal ECG. Chest X-Ray Date: 05/11/21 CXR (05/11/21): No acute process within the chest. A 7 mm nodular density within the left lung base which may represent a nipple shadow. Follow-up PA and lateral views of the chest with nipple markers and shallow oblique views are recommended for further evaluation. Repeat CXR with nipple markers (05/11/21): Confirmation of the 7 mm nodule within the base of the left lower lobe. Recommend follow-up nonemergent chest CT for further evaluation. (Pt had follow up CT scan of chest on 05/14/21- see below) Echocardiogram Date: 05/23/20 EF equal to or greater than 55%. Mildly dilated aortic root (3.9 cm) and ascending aorta (3.7 cm). Grade 1 diastolic dysfunction. No significant valvular disease. "Similar to prior report "per report. Stress Test Date: 12/07/16 Negative for ischemia by EKG and echo criteria. LV size appears within normal limits. 103% MPHR reach. No arrhythmias. EF 62%. Other Testing Chest CT 05/14/2021 = no pulmonary nodule. Lungs are essentially cleared. Moderate sliding-type hiatal hernia. Mild 4 cm ascending thoracic aortic aneurysm. Scattered three-vessel coronary artery calcifications.
[2021-05-27] MEDS ORDERED: LR 60ML/HR IV SCH (06:00)
[2021-05-27] MEDS ORDERED: LR 500ML BOLUS, THEN 15ML/HR IV SCH (06:00)
[2021-05-27] MEDS ORDERED: TRANEXAMIC ACID 1,000 MG **IV Pre-op IV SCH (06:00)
[2021-05-27] MEDS ORDERED: ceFAZolin 2000MG 2,000 MG/15 ML SYR IV SCH (06:00)
[2021-05-27] MEDS ORDERED: ROPIVACAINE 0.5% HCL/PF 150 MG, BUPIVACAINE 0.75% MPF 20 ML, EPINEPHrine 0.15 MG, Ketor... INFIL SCH (06:00)
--- NOTE | 2021-05-27 06:00 | History & Physical Bridge Note ---
Date of Service May 27, 2021 History & Physical Bridge Note I have examined the patient, reviewed the History & Physical and in the interval since the performance of the History & Physical I have noted the following changes of clinical significance: consent obtained/site verified/covid screen negative.no changes noted
[2021-05-27] MEDS ORDERED: BUPIVACAINE 0.5 % 5 MG/1 ML PF 10ML VIAL ONE (06:28)
[2021-05-27] MEDS ORDERED: EPINEPHrine INJ 1 MG/ML AMP ONE (06:28)
[2021-05-27] MEDS ORDERED: ROPIVACAINE 0.5% 5 MG/ML 30 ML VIAL ONE (06:28)
[2021-05-27] MEDS ORDERED: fentaNYL citrate 100 MCG/2 ML VIAL ONE (06:38)
[2021-05-27] MEDS ORDERED: LIDOCAINE 2% 2 ML VIAL/AMP(20MG/ML) INFIL ONE (06:38)
[2021-05-27] MEDS ORDERED: PROPOFOL IV EMULSION 10 MG/ML 20 ML VIAL IV ONE (06:38)
[2021-05-27] MEDS ORDERED: MIDAZOLAM HCL 1 MG/ML 2ML VIAL ONE (06:39)
[2021-05-27] MEDS ORDERED: ORTHO JOINT ANESTHETIC ONE (06:50)
[2021-05-27] MEDS ORDERED: KETAMINE 50 MG/5 ML SYRINGE ONE (07:17)
[2021-05-27] MEDS ORDERED: ONDANSETRON INJ 2 MG/ML 2 ML VIAL ONE (08:07)
[2021-05-27] MEDS ORDERED: ATROPINE SULFATE 0.1 MG/ML 10ML SYR IV PRN (08:26)
[2021-05-27] MEDS ORDERED: ePHEDrine sulfate 50 MG/ML AMP IV PRN (08:26)
--- NOTE | 2021-05-27 08:30 | Post Operative Brief Note ---
Immediate Post Op Note v1 Date of Surgery May 27, 2021 Pre & Post Diagnosis Operation Date: 05/27/21 07:00 Pre-Op Diagnosis: Right Knee Degenerative Joint Disease Post-Op Diagnosis: Right Knee Degenerative Joint Disease I identified the patient and participated in the time-out.: Yes Procedure Operation Date: 05/27/21 07:00 Actual Procedures p Right Total Knee Arthroplasty(Right) - Misael Benitez MD Surgeon Misael Benitez MD Sales Service Technician [facility] Estimated Blood Loss 25 Findings Consistent with Post-Op Diagnosis djd
--- NOTE | 2021-05-27 08:44 | Operative Report ---
Post Operative Report Pre & Post Diagnosis Operation Date: 05/27/21 07:00 Pre-Op Diagnosis: Right Knee Degenerative Joint Disease Post-Op Diagnosis: Right Knee Degenerative Joint Disease I identified the patient and participated in the time-out.: Yes Procedure Operation Date: 05/27/21 07:00 Actual Procedures p Right Total Knee Arthroplasty(Right) - Misael Benitez MD Surgeon TALITA Benitez MD Commissioning Manager Mo CABRALES Estimated Blood Loss 25 Findings Consistent with Post-Op Diagnosis see operative report Specimens see operative report Drains none Complications none Disposition Accompanied Patient To Recovery: Yes Indications This 76-year-old male presented to the office with complaints of persisting right knee pain. He had tried conservative care measures without improvement. He elected to proceed with surgical intervention after being educated about potential risks and outcomes. Preoperative imaging was obtained. Description of Procedure Patient was given a spinal anesthetic and then taken to the operating room where he was given sedation. He was prepped and draped in the usual sterile fashion. Please see Dr. Benitez's operative report for specifics of the procedure. I was present for the entire case from initial patient positioning through final wound closure. Assistance was provided in tissue retraction, hemostasis, trial implant placement, final implant placement, and final wound closure. Patient was taken to the recovery room in satisfactory condition. I attest to the content of the Intraoperative Record and any orders documented therein. Any exceptions are noted below.
--- NOTE | 2021-05-27 09:04 | XRay Report ---
XR knee RT 1 or 2V routine HISTORY: 76 years-old Male S/P R TKA right knee total joint arthroplasty COMPARISON: 02/02/2021 TECHNIQUE: 2 views of the right knee FINDINGS: Right knee total joint arthroplasty with patellar resurfacing and anterior midline skin karime. Expe cted postoperative soft tissue swelling with deep tissue air. No acute fracture, malalignment or unex pected opaque foreign body. IMPRESSION: Right knee total joint arthroplasty with expected postoperative changes. ACT 112: Negative or not required by law. The above report was generated using voice recognition software. It may contain grammatical, syntax o r spelling errors. Electronically signed by: Ismael Schwarz M.D. 05/27/2021 9:03 AM
[2021-05-27] MEDS ORDERED: VANCOMYCIN HCL 1,750 MG in SODIUM CHLORIDE 0.9% 500 ML IV ONE (09:15)
--- NOTE | 2021-05-27 09:18 | Anesthesiology Progress Note ---
Date of Service May 27, 2021 Anesthesia Post Procedure Vital Signs Vital Signs: Temp Pulse Pulse Resp BP BP Pulse Ox 05/27/21 09:10 49 L 16 92/63 L 97 05/27/21 09:00 60 14 96/61 L 94 05/27/21 08:50 73 20 90/64 L 94 05/27/21 08:41 36.1 C L 82 14 84/57 L 96 05/27/21 05:32 36.4 C L 50 L 20 128/72 97 Pain Intensity Right Knee: Pain Intensity: 1 Transfer of Care Handoff Completed per policy Notes Mental Status: alert / awake / arousable Patient Amnestic to Procedure: Yes Nausea / Vomiting: adequately controlled Pain: adequately controlled Airway Patency, RR, SpO2: stable & adequate BP & HR: stable & adequate Hydration State: stable & adequate Neuraxial Anesthesia: was administered and sensory block is resolving Anesthetic Complications: no major complications apparent
--- NOTE | 2021-05-27 09:24 | Progress Notes ---
DATE OF SERVICE: 05/27/2021 Postop check status post right total knee replacement. The patient is awake and alert. He feels fin e. Still has effects of his spinal. His foot is pink and warm. Wound dressing clean, dry and intac t. Denies chest pain, shortness of breath, fever, chills, nausea, vomiting or headache. Postop x-rays look excellent. ASSESSMENT: Doing well status post right total knee replacement. We will continue postoperative car e pathway. Discharge tomorrow. Of note, he is requesting hydrocodone rather than oxycodone due to n ausea. We can make that adjustment for him. Continue with care pathway otherwise. Job ID: [id number]
--- NOTE | 2021-05-27 09:53 | Discharge Summary (DS) ---
DATE OF ADMISSION: 05/27/2021 DATE OF DISCHARGE: 05/28/2021, pending overnight response. CHIEF COMPLAINT: Right knee pain. HISTORY OF PRESENT ILLNESS: Underwent elective right total knee replacement. HOSPITAL COURSE: To date has been uneventful. PAST MEDICAL AND SURGICAL HISTORY: Remarkable for severe osteoarthritis, history of past cigarette s moking, coronary artery calcification, esophageal ulcer, GERD, hiatal hernia, history of colonoscopie s, EGDs, history of left total knee replacement, lipoma. FAMILY HISTORY: Remarkable for cancer, diabetes. SOCIAL HISTORY: Reveals he is presently. Smoked for a long time, but just recently quit. Do es admit to social alcohol. He lives with his spouse. He feels safe at home. REVIEW OF SYSTEMS: Reveals no chest pain, shortness of breath, fever, chills, nausea, vomiting or he adache. Postoperative x-rays look excellent. ASSESSMENT: Status post right total knee replacement. Continue with care pathway. Discharge to [facility] tomorrow with services as needed. Care management will determine. Deep venous thrombosis prophylax is per protocol. Job ID: [id number]
[2021-05-27] MEDS ORDERED: FLUTICASONE PROPIONATE NA SPR 16 GM BTL NAE PRN (10:20)
[2021-05-27] MEDS ORDERED: SODIUM CHLORIDE 0.9% 1000ML 1,000 ML IV SCH (10:20)
[2021-05-27] MEDS ORDERED: ONDANSETRON INJ 2 MG/ML 2 ML VIAL IV PRN (10:20)
[2021-05-27] MEDS ORDERED: NALOXONE HCL 0.4 MG/1 ML VIAL/CARP IV PRN (10:20)
[2021-05-27] MEDS ORDERED: diphenhydrAMINE 50 MG/ML VIAL IV PRN (10:20)
[2021-05-27] MEDS ORDERED: HYDROCODONE/ACETAMOPHEN 5/325MG TAB PO PRN (10:20)
[2021-05-27] MEDS ORDERED: METOCLOPRAMIDE HCL INJ 5 MG/ML 2 ML VIAL IV PRN (10:20)
[2021-05-27] MEDS ORDERED: TAMSULOSIN HCL 0.4 MG CAP PO PRN (10:20)
[2021-05-27] MEDS ORDERED: ALUMINUM/MAGNESIUM SUSP 30 ML UDC PO PRN (10:20)
[2021-05-27] MEDS ORDERED: bisacodyL 10 MG SUPP PR PRN (10:20)
[2021-05-27] MEDS ORDERED: HYDROmorphone INJ 0.5 MG/0.5 ML SYR IV PRN (10:20)
--- NOTE | 2021-05-27 11:02 | Operative Report (OR) ---
DATE OF PROCEDURE: 05/27/2021. SURGEON: Misael Benitez MD DIGITAL PROOFING AND PLATEMAKER: Morgan Hassan PA-C, no resident or fellow available. PREOPERATIVE DIAGNOSIS: Osteoarthritis with varus deformity, right knee. POSTOPERATIVE DIAGNOSIS: Osteoarthritis with varus deformity, right knee. OPERATION PERFORMED: Cemented right total knee replacement. SUMMARY OF IMPLANTS: Size 4 right femur posterior cruciate substituting size 4 mobile bearing tray, size 4 spacer, 10 mm thick posterior cruciate substituting oval dome 3 peg patella, size 41, two bags of [place] G cement. ESTIMATED BLOOD LOSS: 25 mL. CRYSTALLOID: Per Anesthesia. PATHOLOGY: Pending on bone. DEEP VENOUS THROMBOSIS PROPHYLAXIS: Per protocol. PERIOPERATIVE SITUATION: Medically cleared male with intractable knee pain and wished to proceed wit h surgical treatment. At this point in time, he understands risks and consequences as the other side is done. DESCRIPTION OF PROCEDURE: The patient was appropriately identified, site verified, consent verified. Antibiotics were confirmed as being given. The right lower extremity was prepped and draped in usu al routine fashion. Tourniquet was inflated to 300 mmHg after exsanguination of limb with a rubber E smarch bandage for a total of 51 minutes. A midline exposure was utilized. He had an old incision that was horizontal across the knee, went ac ross that at 90 degrees. Full thickness flaps raised. Parapatellar arthrotomy performed. Synovecto my completed, osteophytes resected. Distal femur entered. Cruciates resected. Tibia was subluxated , menisci resected. Distal femur then resected 12 mm, proximal tibia then resected 4 mm. The extens ion gap was excellent. The femur was then sized to 4. Appropriate anterior and posterior condylar a nd chamfer cuts were made. Then the flexion gap was checked, it was excellent. The posterior capsul e was injected with the Orthomix. The box cut made and a size 4 femur fit well. The tibia was then subluxated, broached, and reamed to a size 4, and a 10 mm spacer gave excellent stability in both ful l extension, full flexion, and mid range flexion. The patella tracked well. The patella was resecte d leaving roughly 15 mm patella. Seating holes were made, and the trial fit well. It tracked well. The knee was then injected with the Orthomix. All trial implants were then removed, the wound irrig ated with Betadine and Pulsavac, and then the permanent cemented in position, tibia, femur, and [place] la in that order at 12 minutes, the tourniquet deflated after 14 minutes, the knee flexed. No cement removal was required. No major bleeding encountered. The knee was then irrigated and the trial bessie er removed, the permanent liner seated. The knee reduced and closed at 30 degrees of flexion with #2 Vicryl, 2-0 Vicryl, and stainless steel clips. Appropriate dressing applied. The patient was trans ferred to recovery room in satisfactory condition, having tolerated the procedure well. Job ID: [id number]
[2021-05-27] MEDS: PANTOprazole 40 MG TAB PO SCH (11:18)
[2021-05-27] MEDS: DOCUSATE SODIUM 100 MG CAP PO SCH ×2 (11:19→20:46)
[2021-05-27] MEDS: MULTIVITAMIN TAB PO SCH (11:19)
[2021-05-27] MEDS: KETOROLAC TROMETHAMINE 15 MG/ML VIAL IV SCH ×3 (12:12→23:21)
[2021-05-27] MEDS: ORTHO WARFARIN NOMOGRAM SCH (13:14)
[2021-05-27] MEDS: ceFAZolin 2000MG 2,000 MG/15 ML SYR IV SCH ×2 (14:24→20:46)
[2021-05-27] MEDS ORDERED: TRANEXAMIC ACID / 0.7% NACL 1,000 MG/100 ML BAG IV SCH (14:45)
[2021-05-27] MEDS ORDERED: WARFARIN SOD 5 MG TAB PO ONE (16:00)
[2021-05-27] MEDS: FERROUS GLUCONATE 324 MG TAB PO SCH (17:32)
[2021-05-27] MEDS: ASCORBIC ACID 500 MG TAB PO SCH (17:32)
[2021-05-27] MEDS: MAGNESIUM HYDROXIDE SUSP 30 ML UDC PO PRN ×2 (18:42→23:21)
[2021-05-27] MEDS ORDERED: SENNA 8.6 MG TAB PO SCH (21:00)
[2021-05-28] MEDS ORDERED: COUGH DROP (SUGAR FREE) LOZ 24 LOZ/1 BOX BUCCAL ONE (04:32)
[2021-05-28] MEDS: KETOROLAC TROMETHAMINE 15 MG/ML VIAL IV SCH (04:36)
[2021-05-28] MEDS: ORTHO WARFARIN NOMOGRAM SCH (07:03)
[2021-05-28] MEDS ORDERED: WARFARIN SOD 5 MG TAB PO ONE ×2 (07:04→16:00)
[2021-05-28] MEDS: FERROUS GLUCONATE 324 MG TAB PO SCH (07:14)
[2021-05-28] MEDS: PANTOprazole 40 MG TAB PO SCH (07:14)
[2021-05-28] MEDS: ASCORBIC ACID 500 MG TAB PO SCH (07:14)
[2021-05-28] MEDS: MULTIVITAMIN TAB PO SCH (07:14)
[2021-05-28] MEDS: DOCUSATE SODIUM 100 MG CAP PO SCH (07:18)
[2021-05-28] MEDS ORDERED: dexAMETHasone 10 MG in SYRINGE 0 ML IV SCH (08:00)
[2021-05-28 08:47] LABS: Hemoglobin 12.1 g/dL (14.0-18.0); Mean Corpuscular Hemoglobin 31.2 pg (25-34); Mean Corpuscular Hgb Conc 33.6 g/dL (32-36); Mean Corpuscular Volume 92.8 fL (80-100); Mean Platelet Volume 9.9 fL (7.4-10.4); Platelet Count 182 K/uL (130-400); RDW Coefficient of Variation 12.6 % (11.5-14.5); RDW Standard Deviation 42.3 fL (36.4-46.3); Red Blood Count 3.88 M/uL (4.7-6.1)
--- NOTE | 2021-05-28 08:51 | Progress Notes ---
DATE OF NOTE: 05/28/2021. Postop check status post right total knee replacement. SUBJECTIVE: The patient is doing well, has no issues. OBJECTIVE: VITAL SIGNS: Stable. He is afebrile. NEUROVASCULAR CHECK: Femoral sciatic nerve is normal. Calves nontender. Eating, drinking, voiding, doing well. LABORATORY DATA: A.m. labs are not available yet. ASSESSMENT: Doing well. Discharged to home today. Coumadin dose per nomogram. Job ID: [id number]
[2021-05-28 08:56] LABS: INR 1.1 (0.9-1.1); Prothrombin Time 11.1 Seconds (9.0-12.0)
[2021-05-28 09:15] LABS: BUN Creatinine Ratio 16.3 (10-20); Calcium 8.3 mg/dl (8.5-10.1); Creatinine Clr Calc Pharmacy 74.8 ml/min; Est GFR (African American) 78.8 ml/min; Potassium 4.5 mmol/L (3.5-5.1)
--- NOTE | 2021-05-28 21:30 | Orthopedic Progress Note ---
Date of Service May 28, 2021 Assessment & Plan (1) S/P total knee replacement using cement: Plan: Patient's dressings were changed by me. BALTAZAR hose were applied. He will leave these on until Tuesday, when home health may change them. Importance of icing and elevating was discussed. Continue with his exercises several times per day. Importance of practicing extension and angling for flexion was discussed. Continue using the knee immobilizer today and tomorrow, and then discontinue it. He will use his walker for ambulation. Follow-up in the office in 2 weeks for staple removal. Keep the knee dry. Written discharge instructions were provided. Postop PT appointment has been made for around 20 days postop. Prescriptions for [place] and Coumadin were sent to his pharmacy. Admission and Anticipated Discharge Date Admission Date: May 27, 2021 Subjective Patient is seen in his room this morning. He denies any discomfort. He feels ready for discharge. He states his night was fairly good. He denies any chest pain, shortness of breath, nausea, vomiting, or abdominal pain. He states that his knee feels better than his other knee did at this point. No other complaints. He has been out of bed. Review of Systems Review of Systems: Unchanged from yesterday. Physical Exam Physical Exam: General: Well-developed, well-nourished, elderly male, in no acute distress. Laying in a bed. Alert and oriented. Conversive. Skin: Warm and dry with good turgor. No rashes or lesions. Postop dressing is in place on the right leg. Upon removal, there is scant dried blood on his dressings. No active bleeding. [place] are intact. Wound edges are well approximated. Expected postoperative edema. No ecchymosis. Musculoskeletal: Patient is able to perform a straight leg raise. He has full terminal extension. Flexion to around 40 degrees without difficulty. Intact motor function of his ankle and toes. Neurologic: Gross sensation is intact across the right leg by soft touch. Peripheral pulses are 2+. Results & Data ([facility]) Vital Signs (Past 12 Hours) Vital Signs Temp Pulse Pulse Resp BP Pulse Ox 05/28/21 10:26 36.7 C 48 L 54 L 16 124/73 95 Laboratory Results WBCs today are mildly elevated at 12.1. H&H are 12.1 and 36.0. INR is 1.1. Sodium 136, potassium 4.5. BUN 17 and creatinine 1.07. Glucose is 97.
== END 2021-05-28 11:12 | disposition home health service (06) ==
LOC: PACUINP 04:54 → ASU 04:54 → 3N 10:19